=== PATIENT | male | born 1945 | race Caucasian/White ===

== ENCOUNTER → 2016-05-13 | Outpatient (CLI) | payer MEDICARE ==
[~2016-05-13] VITALS: Ht 172.7 cm; Wt 66.2 kg
[~2016-05-13] MED LIST: LIDOCAINE 2% INJ 100 MG/5 ML SDV (FOR ANES.) As Ordered ONE; NS 1,000 ML IV SCH; PANT40TA2 PO; PROPOFOL 200 MG/20 ML VIAL As Ordered ONE
--- NOTE | 2016-05-13 11:44 | ROOR ---
Patient Name: Jose Eduardo Gastelum Procedure Date: 05/13/2016 11:33 AM Date of : 1945 Age: 71 Room: [facility] Gender: Male Note Status: Finalized Procedure: Upper GI endoscopy Indications: Epigastric abdominal pain, Heartburn Providers: Salvador Nolan MD Referring MD: EMMA MARSHALL MD Requesting Provider: Medicines: Monitored Anesthesia Care Complications: No immediate complications. Procedure: Pre-Anesthesia Assessment: - The heart rate, respiratory rate, oxygen saturations, blood pressure, adequacy of pulmonary ventilation, and response to care were monitored throughout the procedure. The Endoscope was introduced through the mouth, and advanced to the second part of duodenum. The upper GI endoscopy was accomplished without difficulty. The patient tolerated the procedure well. Findings: The Z-line was irregular and was found 35 cm from the incisors. A small hiatus hernia was present. No other significant abnormalities were identified in a careful examination of the stomach. The exam of the duodenum was otherwise normal. Impression: - Z-line irregular, 35 cm from the incisors. - Small hiatus hernia. - No specimens collected. - The examination was otherwise normal. Recommendation: - Patient has a contact number available for emergencies. The signs and symptoms of potential delayed complications were discussed with the patient. Return to normal activities tomorrow. Written discharge instructions were provided to the patient. - High fiber diet. - Discharge patient to home. - Continue present medications. - Follow an antireflux regimen. - Return to referring physician. - The findings and recommendations were discussed with the patient's family. Slavador Nolan MD Salvador Nolan MD 05/13/2016 11:44:35 AM This report has been signed electronically. Number of Addenda: 0 Note Initiated On: 05/13/2016 11:33 AM Estimated Blood Loss: Estimated blood loss: none.
--- NOTE | 2016-05-13 11:57 | ROOR ---
Patient Name: Jose Eduardo Gastelum Procedure Date: 05/13/2016 11:33 AM Date of : 1945 Age: 71 Room: [facility] Gender: Male Note Status: Finalized Procedure: Colonoscopy to Cecum + Biopsies Indications: Screening for colorectal malignant neoplasm Providers: Salvador Nolan MD Referring MD: EMMA MARSHALL MD Requesting Provider: Medicines: Monitored Anesthesia Care Complications: No immediate complications. Procedure: Pre-Anesthesia Assessment: - The heart rate, respiratory rate, oxygen saturations, blood pressure, adequacy of pulmonary ventilation, and response to care were monitored throughout the procedure. The Colonoscope was introduced through the anus and advanced to the cecum, identified by appendiceal orifice and ileocecal valve. The colonoscopy was performed without difficulty. The patient tolerated the procedure well. The quality of the bowel preparation was inadequate. Findings: The perianal and digital rectal examinations were normal. Non-bleeding internal hemorrhoids were found during retroflexion. The hemorrhoids were small and Grade I (internal hemorrhoids that do not prolapse). Multiple small and large-mouthed diverticula were found in the recto-sigmoid colon, in the sigmoid colon and in the descending colon. A localized area of moderately altered vascular, congested and erythematous mucosa was found in the recto-sigmoid colon. Biopsies were taken with a cold forceps for histology. The exam was otherwise without abnormality. Impression: - Preparation of the colon was inadequate. - Non-bleeding internal hemorrhoids. - Diverticulosis in the recto-sigmoid colon, in the sigmoid colon and in the descending colon. - Altered vascular, congested and erythematous mucosa in the recto-sigmoid colon. Biopsied. - The examination was otherwise normal. - The exam was suboptimal due to patient preparation. - The exam was otherwise normal to the cecum. Recommendation: - Patient has a contact number available for emergencies. The signs and symptoms of potential delayed complications were discussed with the patient. Return to normal activities tomorrow. Written discharge instructions were provided to the patient. - High fiber diet. - Discharge patient to home. - Continue present medications. - Await pathology results. - Telephone GI clinic for pathology results in 1 week. - Repeat colonoscopy in 3 years for surveillance based on pathology results. - Return to referring physician. - The findings and recommendations were discussed with the patient's family. Salvador Nolan MD Salvador Nolan MD 05/13/2016 11:56:51 AM This report has been signed electronically. Number of Addenda: 0 Note Initiated On: 05/13/2016 11:33 AM Estimated Blood Loss: Estimated blood loss: none.
[2016-05-13 12:30] VITALS: BP 144/64
== END ==
LOC: M OPP 10:30
PROVIDERS: ATTEND Internal Medicine Gastroenterology
DX: Z12.11 Encounter for screening for malignant neoplasm of colon (principal); K64.0 First degree hemorrhoids; K57.30 Diverticulosis of large intestine without perforation or abscess without bleeding; K63.89 Other specified diseases of intestine; R12 Heartburn; K22.8 Other specified diseases of esophagus; K44.9 Diaphragmatic hernia without obstruction or gangrene; M19.90 Unspecified osteoarthritis, unspecified site; J44.9 Chronic obstructive pulmonary disease, unspecified; Z87.891 Personal history of nicotine dependence; Z79.899 Other long term (current) drug therapy

== ENCOUNTER 2016-06-10 15:12 | Emergency (ER) | payer MEDICARE ==
[~2016-06-10 15:12] MED LIST changes: -LIDOCAINE 2% INJ 100 MG/5 ML SDV (FOR ANES.) As Ordered ONE; -NS 1,000 ML IV SCH; -PROPOFOL 200 MG/20 ML VIAL As Ordered ONE
--- NOTE | 2016-06-10 17:47 | EDDOCDS ---
Physician Documentation [facility] Name: Jose Eduardo Gastelum Age: 71 yrs Sex: Male : 1945 Arrival Date: 06/10/2016 Time: 15:12 Bed TR8 Private MD: Dawna Griffin Abdul Disposition: 06/10/16 17:40 Discharged to Home/Self Care. Impression: Laceration without foreign body of scalp. - Condition is Stable. - Discharge Instructions: Facial or Scalp Contusion, Laceration Care, Adult, Stitches, Petr, or Adhesive Wound Closure. - Medication Reconciliation, Local Pharmacy Hours form. - Follow up: Dawna Griffin; When: Call to arrange an appointment; Reason: Recheck today's complaints, Continuance of care. - Problem is new. - Symptoms have improved. - Notes: have petr removed in seven days Historical: - Allergies: no known allergies; - Home Meds: 1. pantoprazole 40 mg oral TbEC 1 tab 2 times per day - PMHx: GERD; - PSHx: left eye implant 07/31/09; Endoscopy, Upper; Colonoscopy; - Social history: Smoking status: Patient states was never smoker of tobacco. No barriers to communication noted, The patient speaks fluent Rwandan, Speaks appropriately for age. - Family history: Not pertinent. - : The pt / caregiver states he / she is not on anticoagulants. Home medication list is obtained from the patient. - Exposure Risk Screening:: None identified. Vital Signs: 06/10 15:16 BP 183 / 103; Pulse 104; Resp 18 S; Temp 95.0(O); Pulse Ox 98% on R/A; Weight 63.96 kg gr2 / 141.01 lbs (R); Height 5 ft. 8 in. (172.72 cm) (R); Pain 8/10; 17:44 BP 181 / 99; Pulse 71; Resp 18; Temp 98.8(TE); Pulse Ox 97% on R/A; Pain 4/10; ck1 15:16 Body Mass Index 21.44 (63.96 kg, 172.72 cm) gr2 [place] Coma Score: 15:19 Eye Response: spontaneous(4). Verbal Response: oriented(5). Motor Response: obeys hs1 commands(6). Total: 15. Signatures: Codi MiguelRN RN ck1 Lisa Venegas RN RN hs1 Fausto Mckeon PA PA mo1 MTDD
--- NOTE | 2016-06-10 17:47 | EDDOCDS ---
Nurse's Notes [facility] Name: Jose Eduardo Gastelum Age: 71 yrs Sex: Male : 1945 Arrival Date: 06/10/2016 Time: 15:12 Bed TR8 Private MD: Dawna Griffin Abdul Diagnosis: Laceration without foreign body of scalp Presentation: 06/10 15:19 Presenting complaint: Patient states: fell off ladder missed last rung getting down hs1 ladder and hit head on cinderblock. Patient DENIES blood thinners. Patient DENIES LOC. Laceration noted to back of scalp. This patient has no additional risk factors. Mechanism of Injury: resulted from a fall. Adult Sepsis Screening: Adult Sepsis Screening: The patient does not have new or worsening altered mentation. Patient's respiratory rate is less than 22. Systolic blood pressure is greater than 100. Patient has a qSOFA score of 0- Negative Sepsis Screen. Suicide/Homicide risk assessment- the patient denies having any suicidal and/or homicidal ideations and does not present with any other emotional, behavioral or mental health complaints. Status: Patient is not a business services manager or dependent. Transition of care: patient was not received from another setting of care. 15:19 Acuity: CECILIO Level 3 hs1 15:19 Method Of Arrival: Walkin/Carried/Asstd hs1 Triage Assessment: 15:22 General: Appears in no apparent distress, Behavior is appropriate for age, cooperative. hs1 Pain: Location: scalp Pain currently is 5 out of 10 on a pain scale. Neurological: Level of Consciousness is awake, alert, obeys commands, Oriented to person, place, time, Investigations Director are equal bilaterally Moves all extremities. Gait is steady, Speech is normal, Facial symmetry appears normal, Reports headache. Historical: - Allergies: no known allergies; - Home Meds: 1. pantoprazole 40 mg oral TbEC 1 tab 2 times per day - PMHx: GERD; - PSHx: left eye implant 07/31/09; Endoscopy, Upper; Colonoscopy; - Social history: Smoking status: Patient states was never smoker of tobacco. No barriers to communication noted, The patient speaks fluent Serbian, Speaks appropriately for age. - Family history: Not pertinent. - : The pt / caregiver states he / she is not on anticoagulants. Home medication list is obtained from the patient. - Exposure Risk Screening:: None identified. Screenin:45 Screening information is obtained from the patient. Fall risk: No risks identified. ck1 Assistance ADL's: requires no assistance with activities of daily living. Abuse/DV Screen: The patient / caregiver reports he/she is: not in a situation that causes fear, pain or injury. Nutritional screening: No deficits noted. Advance Directives: Currently, there is no health care proxy. home support is adequate. Assessment: 17:45 General: Appears in no apparent distress, comfortable, Behavior is appropriate for age, ck1 cooperative. Pain: Location: scalp Pain currently is 4 out of 10 on a pain scale. Neurological: Level of Consciousness is awake, alert, obeys commands, Oriented to person, place, time. Respiratory: Respiratory effort is unlabored, Respiratory pattern is regular, symmetrical. Derm: Skin is healthy with good turgor, Skin is pink, warm & dry. Musculoskeletal: No deficits noted. Vital Signs: 15:16 BP 183 / 103; Pulse 104; Resp 18 S; Temp 95.0(O); Pulse Ox 98% on R/A; Weight 63.96 kg gr2 (R); Height 5 ft. 8 in. (172.72 cm) (R); Pain 8/10; 17:44 BP 181 / 99; Pulse 71; Resp 18; Temp 98.8(TE); Pulse Ox 97% on R/A; Pain 4/10; ck1 15:16 Body Mass Index 21.44 (63.96 kg, 172.72 cm) gr2 Vitals: 15:16 Log In Time: June 10, 2016 at 15:16. gr2 [place]yla Coma Score: 15:19 Eye Response: spontaneous(4). Verbal Response: oriented(5). Motor Response: obeys hs1 commands(6). Total: 15. ED Course: 15:15 Patient visited by Jaci Martínez. gr2 15:15 Patient moved to Waiting gr2 15:16 Dawna Griffin is Private Physician. gr2 15:18 Patient visited by Jaci Martínez. gr2 15:18 Patient moved to Pre RCE gr2 15:21 Triage Initiated hs1 16:53 Patient moved to Triage 1 ct3 17:16 Fausto Mckeon PA is PHCP. mo1 17:16 Rafa Queen MD is Attending Physician. mo1 17:27 Patient visited by Fausto Mckeon PA. mo1 17:40 Dawna Griffin is Referral Physician. mo1 17:44 Patient moved to TR8 ct3 17:44 No IV's were initiated during this patient's visit. No procedures done that require ck1 assistance. 17:45 The patient / caregiver is instructed regarding the plan of care and ED course. ck1 Order Results: There are currently no results for this order. Outcome: 17:40 Discharge ordered by Provider. mo1 17:44 Discharge Assessment: Patient awake, alert and oriented x 3. No cognitive and/or ck1 functional deficits noted. Patient verbalized understanding of disposition instructions. patient administered narcotics - no. The following High Risk Discharge criteria are identified: None. Discharged to home ambulatory. Condition: stable. Discharge instructions given to patient, Instructed on discharge instructions, follow up and referral plans. medication usage, Demonstrated understanding of instructions, medications, Pt was receptive of discharge instructions/ teaching. Property :Personal belongings accompany Pt. 17:45 No special radiology studies were completed. ck1 17:46 Patient left the ED. ck1 Signatures: Codi Miguel,RN RN ck1 Lisa Venegas RN RN hs1 Agnes Wong, JACKLYN BILINGUAL NANNY ct3 Jaci Martínez gr2 Fausto Mckeon PA PA mo1 MTDD
--- NOTE | 2016-06-12 18:46 | EDDOCDS ---
Physician Documentation [facility] Name: Jose Eduardo Gastelum Age: 71 yrs Sex: Male : 1945 Arrival Date: 06/10/2016 Time: 15:12 Bed TR8 Private MD: Dawna Griffin Abdul Disposition: 06/10/16 17:40 Discharged to Home/Self Care. Impression: Laceration without foreign body of scalp. - Condition is Stable. - Discharge Instructions: Facial or Scalp Contusion, Laceration Care, Adult, Stitches, Petr, or Adhesive Wound Closure. - Medication Reconciliation, Local Pharmacy Hours form. - Follow up: Dawna Griffin; When: Call to arrange an appointment; Reason: Recheck today's complaints, Continuance of care. - Problem is new. - Symptoms have improved. - Notes: have petr removed in seven days Historical: - Allergies: no known allergies; - Home Meds: 1. pantoprazole 40 mg oral TbEC 1 tab 2 times per day - PMHx: GERD; - PSHx: left eye implant 07/31/09; Endoscopy, Upper; Colonoscopy; - Social history: Smoking status: Patient states was never smoker of tobacco. No barriers to communication noted, The patient speaks fluent Filipino, Speaks appropriately for age. - Family history: Not pertinent. - : The pt / caregiver states he / she is not on anticoagulants. Home medication list is obtained from the patient. - Exposure Risk Screening:: None identified. Vital Signs: 06/10 15:16 BP 183 / 103; Pulse 104; Resp 18 S; Temp 95.0(O); Pulse Ox 98% on R/A; Weight 63.96 kg gr2 / 141.01 lbs (R); Height 5 ft. 8 in. (172.72 cm) (R); Pain 8/10; 17:44 BP 181 / 99; Pulse 71; Resp 18; Temp 98.8(TE); Pulse Ox 97% on R/A; Pain 4/10; ck1 15:16 Body Mass Index 21.44 (63.96 kg, 172.72 cm) gr2 [place] Coma Score: 15:19 Eye Response: spontaneous(4). Verbal Response: oriented(5). Motor Response: obeys hs1 commands(6). Total: 15. Procedures: 17:47 Laceration repair:. mo1 Laceration: 17:47 Wound Repair of 3.5cm ( 1.4in ) full thickness laceration to left parietal area. Distal mo1 neuro/vascular/tendon intact. Anesthesia: None with None. Skin closed with 5 thin layer Petr using Staple gun. Dressed with bandaid. Patient tolerated well. MDM: 18:35 [facility] [place] Agreement was scanned into [employer] and attached to record. gjb 18:35 Financial registration complete. gjb 06/11 11:14 T-Sheet-- Draft Copy was scanned into [employer] and attached to record. gb Signatures: America Meyer, Reg Reg gb Eva-Codi SingletonRN RN ck1 Lisa Venegas RN RN hs1 Fausto Mckeon PA PA mo1 Jenae Hirsch The chart was reviewed and I authenticate all verbal orders and agree with the evaluation and treatment provided.Attachments: 06/10 18:35 [facility] Payment Agreement gjb 06/11 11:14 T-Sheet-- Draft Copy gb Chart Complete MTDD
--- NOTE | 2016-06-12 18:46 | EDDOCDS ---
Nurse's Notes [facility] Name: Jose Eduardo Gastelum Age: 71 yrs Sex: Male : 1945 Arrival Date: 06/10/2016 Time: 15:12 Bed TR8 Private MD: Dawna Griffin Abdul Diagnosis: Laceration without foreign body of scalp Presentation: 06/10 15:19 Presenting complaint: Patient states: fell off ladder missed last rung getting down hs1 ladder and hit head on cinderblock. Patient DENIES blood thinners. Patient DENIES LOC. Laceration noted to back of scalp. This patient has no additional risk factors. Mechanism of Injury: resulted from a fall. Adult Sepsis Screening: Adult Sepsis Screening: The patient does not have new or worsening altered mentation. Patient's respiratory rate is less than 22. Systolic blood pressure is greater than 100. Patient has a qSOFA score of 0- Negative Sepsis Screen. Suicide/Homicide risk assessment- the patient denies having any suicidal and/or homicidal ideations and does not present with any other emotional, behavioral or mental health complaints. Status: Patient is not a services executive or dependent. Transition of care: patient was not received from another setting of care. 15:19 Acuity: CECILIO Level 3 hs1 15:19 Method Of Arrival: Walkin/Carried/Asstd hs1 Triage Assessment: 15:22 General: Appears in no apparent distress, Behavior is appropriate for age, cooperative. hs1 Pain: Location: scalp Pain currently is 5 out of 10 on a pain scale. Neurological: Level of Consciousness is awake, alert, obeys commands, Oriented to person, place, time, Reel Stripper are equal bilaterally Moves all extremities. Gait is steady, Speech is normal, Facial symmetry appears normal, Reports headache. Historical: - Allergies: no known allergies; - Home Meds: 1. pantoprazole 40 mg oral TbEC 1 tab 2 times per day - PMHx: GERD; - PSHx: left eye implant 07/31/09; Endoscopy, Upper; Colonoscopy; - Social history: Smoking status: Patient states was never smoker of tobacco. No barriers to communication noted, The patient speaks fluent Setswana, Speaks appropriately for age. - Family history: Not pertinent. - : The pt / caregiver states he / she is not on anticoagulants. Home medication list is obtained from the patient. - Exposure Risk Screening:: None identified. Screenin:45 Screening information is obtained from the patient. Fall risk: No risks identified. ck1 Assistance ADL's: requires no assistance with activities of daily living. Abuse/DV Screen: The patient / caregiver reports he/she is: not in a situation that causes fear, pain or injury. Nutritional screening: No deficits noted. Advance Directives: Currently, there is no health care proxy. home support is adequate. Assessment: 17:45 General: Appears in no apparent distress, comfortable, Behavior is appropriate for age, ck1 cooperative. Pain: Location: scalp Pain currently is 4 out of 10 on a pain scale. Neurological: Level of Consciousness is awake, alert, obeys commands, Oriented to person, place, time. Respiratory: Respiratory effort is unlabored, Respiratory pattern is regular, symmetrical. Derm: Skin is healthy with good turgor, Skin is pink, warm & dry. Musculoskeletal: No deficits noted. Vital Signs: 15:16 BP 183 / 103; Pulse 104; Resp 18 S; Temp 95.0(O); Pulse Ox 98% on R/A; Weight 63.96 kg gr2 (R); Height 5 ft. 8 in. (172.72 cm) (R); Pain 8/10; 17:44 BP 181 / 99; Pulse 71; Resp 18; Temp 98.8(TE); Pulse Ox 97% on R/A; Pain 4/10; ck1 15:16 Body Mass Index 21.44 (63.96 kg, 172.72 cm) gr2 Vitals: 15:16 Log In Time: June 10, 2016 at 15:16. gr2 Shyla Coma Score: 15:19 Eye Response: spontaneous(4). Verbal Response: oriented(5). Motor Response: obeys hs1 commands(6). Total: 15. ED Course: 15:15 Patient visited by Jaci Martínez. gr2 15:15 Patient moved to Waiting gr2 15:16 Dawna Griffin is Private Physician. gr2 15:18 Patient visited by Jaci Martínez. gr2 15:18 Patient moved to Pre RCE gr2 15:21 Triage Initiated hs1 16:53 Patient moved to Triage 1 ct3 17:16 Fausto Mckeon PA is PHCP. mo1 17:16 Rafa Queen MD is Attending Physician. mo1 17:27 Patient visited by Fausto Mckeon PA. mo1 17:40 Dawna Griffin is Referral Physician. mo1 17:44 Patient moved to TR8 ct3 17:44 No IV's were initiated during this patient's visit. No procedures done that require ck1 assistance. 17:45 The patient / caregiver is instructed regarding the plan of care and ED course. ck1 18:35 [facility] [place] Agreement was scanned into [employer] and attached to record. gjb 02 11:14 T-Sheet-- Draft Copy was scanned into [employer] and attached to record. gb Order Results: There are currently no results for this order. Outcome: 0208 17:40 Discharge ordered by Provider. mo1 17:44 Discharge Assessment: Patient awake, alert and oriented x 3. No cognitive and/or ck1 functional deficits noted. Patient verbalized understanding of disposition instructions. patient administered narcotics - no. The following High Risk Discharge criteria are identified: None. Discharged to home ambulatory. Condition: stable. Discharge instructions given to patient, Instructed on discharge instructions, follow up and referral plans. medication usage, Demonstrated understanding of instructions, medications, Pt was receptive of discharge instructions/ teaching. Property :Personal belongings accompany Pt. 17:45 No special radiology studies were completed. ck1 17:46 Patient left the ED. ck1 Signatures: America Meyer, Reg Reg gb Codi MiguelRN RN ck1 Lisa Venegas RN RN hs1 Agnes Wong, JACKLYN PHARMACY OPERATIONS MANAGER ct3 Jaci Martínez gr2 Fausto Mckeon PA PA mo1 Jenae Hirschb Chart Complete MTDD
--- NOTE | 2016-06-12 18:46 | EDDOCDS ---
Physician Documentation [facility] Name: Jose Eduardo Gastelum Age: 71 yrs Sex: Male : 1945 Arrival Date: 06/10/2016 Time: 15:12 Bed TR8 Private MD: Dawna Griffin Abdul Disposition: 06/10/16 17:40 Discharged to Home/Self Care. Impression: Laceration without foreign body of scalp. - Condition is Stable. - Discharge Instructions: Facial or Scalp Contusion, Laceration Care, Adult, Stitches, Petr, or Adhesive Wound Closure. - Medication Reconciliation, Local Pharmacy Hours form. - Follow up: Dawna Griffin; When: Call to arrange an appointment; Reason: Recheck today's complaints, Continuance of care. - Problem is new. - Symptoms have improved. - Notes: have petr removed in seven days Historical: - Allergies: no known allergies; - Home Meds: 1. pantoprazole 40 mg oral TbEC 1 tab 2 times per day - PMHx: GERD; - PSHx: left eye implant 07/31/09; Endoscopy, Upper; Colonoscopy; - Social history: Smoking status: Patient states was never smoker of tobacco. No barriers to communication noted, The patient speaks fluent Tajik, Speaks appropriately for age. - Family history: Not pertinent. - : The pt / caregiver states he / she is not on anticoagulants. Home medication list is obtained from the patient. - Exposure Risk Screening:: None identified. Vital Signs: 06/10 15:16 BP 183 / 103; Pulse 104; Resp 18 S; Temp 95.0(O); Pulse Ox 98% on R/A; Weight 63.96 kg gr2 / 141.01 lbs (R); Height 5 ft. 8 in. (172.72 cm) (R); Pain 8/10; 17:44 BP 181 / 99; Pulse 71; Resp 18; Temp 98.8(TE); Pulse Ox 97% on R/A; Pain 4/10; ck1 15:16 Body Mass Index 21.44 (63.96 kg, 172.72 cm) gr2 [place] Coma Score: 15:19 Eye Response: spontaneous(4). Verbal Response: oriented(5). Motor Response: obeys hs1 commands(6). Total: 15. Procedures: 17:47 Laceration repair:. mo1 Laceration: 17:47 Wound Repair of 3.5cm ( 1.4in ) full thickness laceration to left parietal area. Distal mo1 neuro/vascular/tendon intact. Anesthesia: None with None. Skin closed with 5 thin layer Petr using Staple gun. Dressed with bandaid. Patient tolerated well. MDM: 18:35 [facility] [place] Agreement was scanned into [employer] and attached to record. gjb 18:35 Financial registration complete. gjb 06/11 11:14 T-Sheet-- Draft Copy was scanned into [employer] and attached to record. gb Signatures: America Meyer, Reg Reg gb Eva-Codi SingletonRN RN ck1 Lisa Venegas RN RN hs1 Fausto Mckeon PA PA mo1 Jenae Hirsch The chart was reviewed and I authenticate all verbal orders and agree with the evaluation and treatment provided.Attachments: 06/10 18:35 [facility] Payment Agreement gjb 06/11 11:14 T-Sheet-- Draft Copy gb Chart Complete MTDD
== END 2016-06-10 17:46 | disposition home or self-care (01) ==
LOC: M ED 15:12
DX: S01.01XA Laceration without foreign body of scalp, initial encounter (principal); W11.XXXA Fall on and from ladder, initial encounter; Y92.89 Other specified places as the place of occurrence of the external cause; Y93.89 Activity, other specified; Y99.8 Other external cause status; K21.9 Gastro-esophageal reflux disease without esophagitis; Z79.899 Other long term (current) drug therapy

== ENCOUNTER → 2020-04-16 | Outpatient (CLI) | payer MEDICARE ==
[~2020-04-16] MED LIST changes: -PANT40TA2 PO; +PANT40TA29 PO
--- NOTE | 2020-04-16 09:11 | REP ---
INDICATION: COPD. COMPARISON: 02/09/2018. TECHNIQUE: Upright PA and lateral chest. FINDINGS: The lung singletary are clear. Cardiac size is normal. The graham, mediastinum and skeletal structures are unremarkable except for scoliosis convex right at the thoracolumbar junction, unchanged. There is no interval change. IMPRESSION: Essentially negative PA and lateral chest There is no interval change. <Electronically signed by Parth Stout > 04/16/20 0938
[2020-04-16 09:58] LABS: HEMOGLOBIN 13.6 g/dl (13.5-17.5); MEAN CORPUSCULAR HEMOGLOBIN 30.9 pg (27.0-33.0); MEAN CORPUSCULAR HGB CONC 31.6 g/dl (32.0-36.5); MEAN CORPUSCULAR VOLUME 97.7 fl (80.0-96.0); PLATELET COUNT, AUTOMATED 185 10^3/uL (150-450); WHITE BLOOD COUNT 8.6 10^3/uL (4.0-10.0)
[2020-04-16 10:43] LABS: BILIRUBIN,TOTAL 0.7 MG/DL (0.2-1.0); CHOLESTEROL RISK RATIO 7.323 (<5); CREATININE FOR GFR 1.5 MG/DL (0.70-1.30); GLOMERULAR FILTRATION RATE 48.8 (>42); POTASSIUM SERUM 4.3 MEQ/L (3.5-5.1); PROSTATIC SPECIFIC AG MONITOR 1.57 NG/ML (< 4.00); THYROID STIMULATING HORMONE 5.99 uIU/ML (0.358-3.740); TOTAL PROTEIN 8.1 GM/DL (6.4-8.2)
[2020-04-16 11:10] LABS: HEMOGLOBIN A1c 5.5 %
== END ==
LOC: M WUC 08:04
PROVIDERS: ATTEND Family Medicine
DX: J44.9 Chronic obstructive pulmonary disease, unspecified (principal); R53.83 Other fatigue; E03.9 Hypothyroidism, unspecified; Z79.899 Other long term (current) drug therapy

== ENCOUNTER → 2020-08-20 | Outpatient (CLI) | payer MEDICARE ==
--- NOTE | 2020-08-20 10:53 | REP ---
INDICATION: COPD YEARLY FOLLOW UP COMPARISON: 04/16/2020 TECHNIQUE: PA and lateral. FINDINGS: The mediastinum and cardiac silhouette are normal. The lung singletary are clear and without acute consolidation, effusion, or pneumothorax. The skeletal structures are intact and normal. IMPRESSION: No acute cardiopulmonary process. <Electronically signed by Sanchez Salamanca > 08/20/20 1041
[2020-08-20 16:30] LABS: HEMATOCRIT 40.7 % (42.0-52.0); HEMOGLOBIN 13.2 g/dl (13.5-17.5); MEAN CORPUSCULAR HGB CONC 32.4 g/dl (32.0-36.5); MEAN CORPUSCULAR VOLUME 98.5 fl (80.0-96.0); PLATELET COUNT, AUTOMATED 195 10^3/uL (150-450); RED BLOOD COUNT 4.13 10^6/uL (4.30-6.10); WHITE BLOOD COUNT 9.2 10^3/uL (4.0-10.0)
[2020-08-20 17:07] LABS: ALBUMIN 3.8 GM/DL (3.2-5.2); BILIRUBIN,TOTAL 0.4 MG/DL (0.2-1.0); CALCIUM LEVEL 9.4 MG/DL (8.8-10.2); CHOLESTEROL RISK RATIO 6.866 (<5); CREATININE FOR GFR 1.39 MG/DL (0.70-1.30); GLOMERULAR FILTRATION RATE 53.2 (>42); POTASSIUM SERUM 4.2 MEQ/L (3.5-5.1); PROSTATIC SPECIFIC AG MONITOR 1.5 NG/ML (< 4.00); THYROID STIMULATING HORMONE 2.9 uIU/ML (0.358-3.740); TOTAL PROTEIN 7.7 GM/DL (6.4-8.2)
[2020-08-20 17:54] LABS: HEMOGLOBIN A1c 5.5 %
== END ==
LOC: M WUC 10:24
PROVIDERS: ATTEND Family Medicine
DX: J44.9 Chronic obstructive pulmonary disease, unspecified (principal); R53.83 Other fatigue; E03.9 Hypothyroidism, unspecified; I10 Essential (primary) hypertension; E29.1 Testicular hypofunction; Z79.899 Other long term (current) drug therapy

== ENCOUNTER → 2020-11-26 | Outpatient (CLI) | payer MEDICARE ==
--- NOTE | 2020-11-26 22:09 | ECGEPIP ---
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 No remarkable changes, LEFT BUNDLE BRANCH BLOCK was present in 2014 Electronically Signed on 11-26-2020 22:08:45 EDT by Wellington Escalante
== END ==
LOC: M EKG 13:05
PROVIDERS: ATTEND Family Medicine
DX: I20.9 Angina pectoris, unspecified (principal)

== ENCOUNTER → 2021-05-05 | Outpatient (CLI) | payer MEDICARE | LOC: M LABSMTC 10:09 | PROVIDERS: ATTEND Internal Medicine Cardiovascular Disease | DX: Z20.822 Contact with and (suspected) exposure to COVID-19 (principal) ==

== ENCOUNTER → 2021-06-19 | Outpatient (CLI) | payer MEDICARE | LOC: M LABSMTC 11:29 | PROVIDERS: ATTEND Internal Medicine Cardiovascular Disease | DX: Z01.812 Encounter for preprocedural laboratory examination (principal); Z11.52 Encounter for screening for COVID-19 ==

== ENCOUNTER 2022-05-24 13:22 | Emergency (ER) | payer MEDICARE ==
[~2022-05-24] VITALS: Ht 172.7 cm; Wt 66.1 kg
[2022-05-24] MEDS ORDERED: METO1TAB87 (14:00)
[2022-05-24] MEDS ORDERED: ASPI32ECTA PO (14:00)
[2022-05-24] MEDS ORDERED: ATOR80TA59 (14:00)
[2022-05-24] MEDS ORDERED: ACET1TAB55 PO (14:00)
[2022-05-24] MEDS ORDERED: SYMB16INH INH (14:00)
[2022-05-24] MEDS ORDERED: FURO40TA2 (14:00)
[2022-05-24] MEDS ORDERED: TAMS1CAP17 (14:00)
[2022-05-24 15:39] LABS: BASO % 0.3 % (0.0-1.0); EOS # 0.1 10^3/uL (0.0-0.5); EOS % 0.8 % (0.0-3.0); HEMATOCRIT 43.1 % (42.0-52.0); HEMOGLOBIN 14.2 g/dl (13.5-17.5); LYMPH # 1.1 10^3/uL (1.5-5.0); LYMPH % 8.6 % (24.0-44.0); MEAN CORPUSCULAR HEMOGLOBIN 31.5 pg (27.0-33.0); MEAN CORPUSCULAR HGB CONC 32.9 g/dl (32.0-36.5); MEAN CORPUSCULAR VOLUME 95.6 fl (80.0-96.0); MONO # 0.8 10^3/uL (0.0-0.8); MONO % 6.5 % (2.0-8.0); NEUTROPHILS # 10.8 10^3/uL (1.5-8.5); NEUTROPHILS % 83.6 % (36.0-66.0); PLATELET COUNT, AUTOMATED 194 10^3/uL (150-450); RED BLOOD COUNT 4.51 10^6/uL (4.30-6.10); WHITE BLOOD COUNT 12.9 10^3/uL (4.0-10.0)
[2022-05-24 15:50] LABS: INR 0.92; PROTHROMBIN TIME 12.6 SECONDS (12.5-14.5)
[2022-05-24 15:51] LABS: PARTIAL THROMBOPLASTIN TIME 24.7 SECONDS (24.8-34.2)
[2022-05-24 16:05] LABS: BILIRUBIN,DIRECT 0.2 MG/DL (<0.4); BILIRUBIN,TOTAL 0.9 MG/DL (0.3-1.2); CK-MB VALUE MASS 1.4 NG/ML (<3.6); TOTAL PROTEIN 8.2 G/DL (5.7-8.2)
[2022-05-24 16:14] LABS: RSV AMPLIFICATION NEGATIVE (NEGATIVE)
[2022-05-24 16:20] LABS: CALCIUM LEVEL 9.3 MG/DL (8.3-10.6); CREATININE FOR GFR 1.71 MG/DL (0.70-1.30); FREE T4 1.04 NG/DL (0.89-1.76); GLOMERULAR FILTRATION RATE 41.6 (>42); POTASSIUM SERUM 4.2 MMOL/L (3.5-5.1); THYROID STIMULATING HORMONE 3.268 uIU/ML (0.55-4.78)
[2022-05-24 16:23] LABS: MB/CK RELATIVE INDEX 0.78 (< OR =4)
[2022-05-24] MEDS ORDERED: amLODIPine 5 MG TAB PO ONE (16:35)
[2022-05-24] MEDS ORDERED: NORV5TAB PO (16:43)
[2022-05-24 16:59] LABS: CK-MB VALUE MASS 1.2 NG/ML (<3.6)
[2022-05-24 17:00] VITALS: BP 195/91
[2022-05-24 17:00] LABS: MB/CK RELATIVE INDEX 0.75 (< OR =4)
[2022-05-24 18:27] VITALS: BP 161/89
== END 2022-05-24 18:45 | disposition home or self-care (01) ==
LOC: M ED 16:01
DX: I10 Essential (primary) hypertension (principal); R07.9 Chest pain, unspecified; N28.9 Disorder of kidney and ureter, unspecified; J44.9 Chronic obstructive pulmonary disease, unspecified; Z95.1 Presence of aortocoronary bypass graft; Z79.899 Other long term (current) drug therapy

== ENCOUNTER → 2022-09-23 | Outpatient (CLI) | payer MEDICARE ==
[~2022-09-23] MED LIST changes: +ACET1TAB55 PO; +ASPI32ECTA PO; +ATOR80TA59; +FURO40TA2; +METO1TAB87; +NORV5TAB PO; +SYMB16INH INH; +TAMS1CAP17
== END ==
LOC: M PLAIMG 06:55
PROVIDERS: ATTEND Orthopaedic Surgery
DX: M51.36 Other intervertebral disc degeneration, lumbar region (principal)

== ENCOUNTER → 2024-01-29 | Outpatient (CLI) | payer MEDICARE ==
[~2024-01-29] MED LIST changes: +EZET10TA21 PO
[2024-01-29 10:10] LABS: HEMATOCRIT 38.5 % (42.0-52.0); HEMOGLOBIN 12.7 g/dl (13.5-17.5); MEAN CORPUSCULAR HEMOGLOBIN 32.4 pg (27.0-33.0); MEAN CORPUSCULAR VOLUME 98.2 fl (80.0-96.0); PLATELET COUNT, AUTOMATED 179 10^3/uL (150-450); RED BLOOD COUNT 3.92 10^6/uL (4.30-6.10); WHITE BLOOD COUNT 7.7 10^3/uL (4.0-10.0)
[2024-01-29 10:36] LABS: ALBUMIN 3.7 G/DL (3.2-5.2); BILIRUBIN,TOTAL 0.3 MG/DL (0.3-1.2); CALCIUM LEVEL 9.4 MG/DL (8.3-10.6); CREATININE FOR GFR 2.06 MG/DL (0.70-1.30); GLOMERULAR FILTRATION RATE 33.5 (>42); POTASSIUM SERUM 4.7 MMOL/L (3.5-5.1); PROSTATIC SPECIFIC AG MONITOR 0.66 NG/ML (< 4.00); TOTAL PROTEIN 7.4 G/DL (5.7-8.2)
[2024-01-29 10:38] LABS: THYROID STIMULATING HORMONE 3.769 uIU/ML (0.55-4.78)
[2024-01-29 11:13] LABS: HEMOGLOBIN A1c 5.4 % (4.0-6.0)
[2024-01-29 12:58] LABS: CHOLESTEROL RISK RATIO 6.31 (<5); HDL CHOLESTEROL 31.2 MG/DL (>40); LDL CHOLESTEROL 126.4 MG/DL (<100); NON-HDL-C 165.8 MG/DL
== END ==
LOC: M RAD 08:15
PROVIDERS: ATTEND Family Medicine
DX: I10 Essential (primary) hypertension (principal); R53.83 Other fatigue; R97.20 Elevated prostate specific antigen [PSA]; Z79.899 Other long term (current) drug therapy

== ENCOUNTER → 2024-03-16 | Outpatient (REF) | payer MEDICARE ==
[2024-03-16 17:49] LABS: PERCENT SATURATION 10.8 % (19.7-50.0)
[2024-03-16 17:52] LABS: FERRITIN 132.9 NG/ML (10.5-307.3)
[2024-03-16 18:14] LABS: TOTAL PROTEIN,RANDOM URINE 61.8 MG/DL (0.0-14.0)
[2024-03-16 18:19] LABS: CREATININE,RANDOM URINE 183.9 MG/DL
[2024-03-19 04:07] LABS: PROTEIN, TOTAL SO 7.7 g/dL (6.1-8.1)
[2024-03-21 07:27] LABS: ALBUMIN SO 4.2 g/dL (3.8-4.8); ALPHA 1 GLOBULINS SO 0.4 g/dL (0.2-0.3); ALPHA 2 GLOBULINS SO 0.9 g/dL (0.5-0.9); BETA 2 GLOBULIN SO 0.4 g/dL (0.2-0.5); BETA GLOBULIN SO 0.5 g/dL (0.4-0.6); GAMMA GLOBULINS SO 1.3 g/dL (0.8-1.7)
== END ==
LOC: M LAB REF 17:20
PROVIDERS: ATTEND Internal Medicine Nephrology
DX: R80.9 Proteinuria, unspecified (principal); D63.1 Anemia in chronic kidney disease

== ENCOUNTER → 2024-03-16 | Outpatient (CLI) | payer MEDICARE | LOC: M RAD 11:13 | PROVIDERS: ATTEND Family Medicine | DX: J18.9 Pneumonia, unspecified organism (principal) ==

== ENCOUNTER → 2024-04-06 | Outpatient (CLI) | payer MEDICARE | LOC: M RAD 10:12 | PROVIDERS: ATTEND Family Medicine | DX: J44.9 Chronic obstructive pulmonary disease, unspecified (principal) ==

== ENCOUNTER → 2024-06-21 | Outpatient (REF) | payer MEDICARE ==
[2024-06-21 18:27] LABS: CREATININE,RANDOM URINE 105.4 MG/DL
== END ==
LOC: M LAB REF 17:21
PROVIDERS: ATTEND Internal Medicine Nephrology
DX: R80.9 Proteinuria, unspecified (principal)

== ENCOUNTER → 2025-01-04 | Outpatient (REF) | payer MEDICARE ==
[~2025-01-04] MED LIST changes: -EZET10TA21 PO; +EZET10TA57 PO
[2025-01-04 15:17] LABS: IRON (FE) 51.0 UG/DL (65-175); PERCENT SATURATION 16.2 % (19.7-50.0)
== END ==
LOC: M LAB REF 14:14
PROVIDERS: ATTEND Internal Medicine
DX: N18.32 Chronic kidney disease, stage 3b (principal)

== ENCOUNTER → 2025-04-19 | Outpatient (REF) | payer MEDICARE ==
[2025-04-19 12:11] LABS: URINE TOTAL PROTEIN 20.2 MG/DL (0-14)
== END ==
LOC: M LAB REF 11:19
PROVIDERS: ATTEND Internal Medicine Hematology & Oncology
DX: E85.4 Organ-limited amyloidosis (principal)

== ENCOUNTER → 2025-05-02 | Outpatient (REF) | payer MEDICARE ==
[2025-05-02 15:02] LABS: INR 0.93
[2025-05-03 07:42] LABS: T P ELECTROPHORESIS SO 7.5 g/dL (6.1-8.1)
[2025-05-04 12:27] LABS: FREE KAPPA LIGHT CHAINS SERUM 39.7 mg/L (3.3-19.4); FREE LAMBDA LIGHT CHAINS SERUM 32.9 mg/L (5.7-26.3); KAPPA/LAMBDA RATIO SERUM 1.21 (0.26-1.65)
[2025-05-07 07:12] LABS: ALBUMIN SPEP 4.3 g/dL (3.8-4.8); ALPHA-1-GLOBULINS SO 0.2 g/dL (0.2-0.3); ALPHA-2-GLOBULINS SO 0.8 g/dL (0.5-0.9); BETA 2 GLOBULIN 0.5 g/dL (0.2-0.5); BETA-GLOBULIN SO 0.4 g/dL (0.4-0.6); GAMMA GLOBULINS SO 1.3 g/dL (0.8-1.7)
== END ==
LOC: M LAB REF 14:33
PROVIDERS: ATTEND Internal Medicine
DX: E85.4 Organ-limited amyloidosis (principal); I50.42 Chronic combined systolic (congestive) and diastolic (congestive) heart failure